=== PATIENT | female | born 1940 | race Caucasian/White ===

== ENCOUNTER → 2016-11-15 | Day surgery (SDC) | payer MEDICARE, BC ==
[~2016-11-15] MED LIST: AMARYL PO; ASPIRIN81 M2 PO; COREG PO; CRESTOR PO; GLUCOPHAGE XR500 MG PO; HYDROCODON-ACE1 EAC5 PO; LISINOPRIL PO; LOVENOX; PRAVACHOL PO; PROTONIX PO; VICODIN 5/500 T1 TAB PO; XARELTO20 MG PO; ZOCOR20 MG PO
--- NOTE | ~2016-11-15 | OR ---
Unit #: [id number] #: [id number] Patient: ISAAC ALBERT [id number] [address] [address] [id number] O MR#: [id number] NAME: ISAAC ALBERT ROOM: Date of Procedure: 11/15/2016 Admission Date: 11/15/2016 Surgeon: Ezio Newton M.D. : 1940 Attending Physician: Ezio Newton M.D. Primary Care Physician: Ezio Newton M.D. OPERATIVE REPORT PREOPERATIVE DIAGNOSIS Arthrofibrosis of right total knee. POSTOPERATIVE DIAGNOSIS Arthrofibrosis of right total knee. PROCEDURE PERFORMED Manipulation of right total knee. ANESTHESIA General. DESCRIPTION OF PROCEDURE The patient was brought to the operating room, given a general anesthetic. Her motion of the knee was -15 in extension with flexion to about 70 to 75 degrees. After her general anesthetic was administered, we then manipulated the knee gaining full extension and flexion to about 105 to 110 degrees of flexion. Her knee was taken through a range of motion multiple times. General anesthetic was reversed. She was transferred to the recovery room. We will start physical therapy later today. Dictated by... Esteban Ortez/toney TD: 11/15/2016 21:09 JOB #: [id number] OPERATIVE REPORT X Ezio Newton MD X PROCEDURE OPERATIVE NOTE
[2016-11-15 08:38] LABS: URINE SOURCE CLEAN CATCH
[2016-11-15 08:45] LABS: HEMATOCRIT 37.6 % (35.0-45.0); HEMOGLOBIN 12.2 gm/dL (12.0-16.0); MEAN CELL VOLUME 80.8 FL (83-96); MEAN CORPUSCULAR HEMOGLOBIN 26.3 PG (28-34); MEAN CORPUSCULAR HGB CONC 32.6 g/dL (30-36); MEAN PLATELET VOLUME 7.8 FL (6.5-11.5); RED BLOOD COUNT 4.65 X10e (3.90-5.30); RED CELL DISTRIBUTION WIDTH 14.8 % (11.0-15.5); WHITE BLOOD COUNT 6.3 X10e3 (4.0-10.5)
[2016-11-15 08:53] LABS: URINE APPEARANCE CLOUDY; URINE BILIRUBIN NEG (NEG); URINE BLOOD NEG (NEG); URINE COLOR YELLOW; URINE GLUCOSE NEG (NEG); URINE KETONE NEG (NEG); URINE LEUKOCYTE ESTERASE NEG (NEG); URINE NITRATE NEG (NEG); URINE PROTEIN NEG (NEG); URINE UROBILINOGEN 0.2 MG/DL (NEG)
[2016-11-15 09:08] LABS: BLOOD UREA NITROGEN 10 mg/dL (9-23); BUN/CREATININE RATIO 14.28; CARBON DIOXIDE 26 mmol/L (22-31); CHLORIDE 105 mmol/L (100-111); CREATININE SERUM 0.7 mg/dL (0.6-1.4); GLOM FILT RATE Estimated ABOVE60 mL/min (>60); GLUCOSE FASTING 199 mg/dL (70-110); POTASSIUM 4.3 mmol/L (3.5-5.1); SODIUM 138 mmol/L (135-145)
[2016-11-15 09:10] LABS: CULTURE INDICATED? NO
== END | disposition home or self-care (01) ==
LOC: CSUR 07:58
PROVIDERS: Orthopaedic Surgery
DX: M24.661 Ankylosis, right knee (principal); I10 Essential (primary) hypertension; E11.9 Type 2 diabetes mellitus without complications; K21.9 Gastro-esophageal reflux disease without esophagitis; Z88.2 Allergy status to sulfonamides; Z79.899 Other long term (current) drug therapy; Z90.49 Acquired absence of other specified parts of digestive tract; Z90.710 Acquired absence of both cervix and uterus; Z90.722 Acquired absence of ovaries, bilateral; Z98.41 Cataract extraction status, right eye; Z98.42 Cataract extraction status, left eye; Z98.890 Other specified postprocedural states
CPT/HCPCS: 80048; 81003; 82947; 85027; J3010

== ENCOUNTER → 2017-02-23 | Outpatient (CLI) | payer MEDICARE, BC ==
--- NOTE | ~2017-02-23 | CR63 ---
[facility] A Service of [facility] & [facility] RADIOLOGY TEXT RESULTS PATIENT: ISAAC ALBERT LOCATION: [facility] : [birth year] UNIT #: [id number] AGE: [address]: Ezio Newton MD SEX: F ORDER DR: [id number] [facility] [address] [place], [place] [address] [id number] O MR#: [id number] Acc #: [id number] NAME: ISAAC ALBERT : 1940 SEX: F STUDY DATE/TIME: 02/23/2017 9:38 UNIT: [facility] ROOM: STUDY DESCRIPTION: CR Chest 2 View Attending Physician: Ezio Newton M.D. Referring Physician: Ezio Newton M.D. Ordering Physician: Ezio Newton M.D. Primary Care Physician: Kavon Parker M.D. MEDICAL IMAGING REPORT This report is preliminary unless electronic signature is present EXAM Chest 02/23/2017 HISTORY 76-year-old woman preop right knee arthroplasty. COMPARISON 09/15/2016. FINDINGS PA and lateral chest views show normal cardiac size and configuration. Hilar structures and mediastinal contours are preserved. Bilateral lungs are expanded and clear. IMPRESSION Negative chest Dictated by... Panchito Quijano M.D. THIS IS AN ELECTRONICALLY VERIFIED REPORT Panchito Quijano M.D. at 02/23/2017 3:35 PM KWESI/vee TD: 02/23/2017 13:40 JOB #: [id number] MEDICAL IMAGING REPORT Page 1 of 1 COPY
--- NOTE | ~2017-02-23 | EKG ---
PATIENT: ISAAC ALBERT UNIT #: [id number] Ventricular Rate: 88 BPM Atrial Rate: 88 BPM P-R Interval: 158 ms QRS Duration: 82 ms Q-T Interval: 342 ms QTC Calculation(Bezet): 413 ms P [place]: 74 degrees Calculated R [place]: 41 degrees Calculated T [place]: 81 degrees Diagnosis Line: Normal sinus rhythm Diagnosis Line: Normal ECG Diagnosis Line: When compared with ECG of 19-MAR-2015 12:20, Diagnosis Line: T wave amplitude has decreased in Lateral leads Diagnosis Line: Confirmed by ANTHONY DICKEY MD ([id number]) on 02/24/2017 Diagnosis Line: 6:33:58 PM INTERPRETING MD: NOBLE ORR
[2017-02-23 09:36] LABS: URINE APPEARANCE CLEAR; URINE BILIRUBIN NEG (NEG); URINE BLOOD NEG (NEG); URINE COLOR YELLOW; URINE GLUCOSE NEG (NEG); URINE KETONE NEG (NEG); URINE LEUKOCYTE ESTERASE NEG (NEG); URINE NITRATE NEG (NEG); URINE PROTEIN NEG (NEG); URINE SPECIFIC GRAVITY 1.015 (1.003-1.035); URINE UROBILINOGEN 0.2 MG/DL (NEG)
[2017-02-23 09:37] LABS: HEMATOCRIT 39.5 % (35.0-45.0); HEMOGLOBIN 12.6 gm/dL (12.0-16.0); MEAN CELL VOLUME 81.9 FL (83-96); MEAN CORPUSCULAR HEMOGLOBIN 26.2 PG (28-34); MEAN PLATELET VOLUME 8.4 FL (6.5-11.5); RED BLOOD COUNT 4.82 X10e (3.90-5.30); RED CELL DISTRIBUTION WIDTH 14.9 % (11.0-15.5); WHITE BLOOD COUNT 6.4 X10e3 (4.0-10.5)
[2017-02-23 09:49] LABS: URINE SOURCE CLEAN CATCH
[2017-02-23 09:50] LABS: CULTURE INDICATED? NO
[2017-02-23 10:41] LABS: BUN/CREATININE RATIO 17.5; CALCIUM SERUM 9.3 mg/dL (8.4-10.2); CREATININE SERUM 0.8 mg/dL (0.6-1.4); GLOM FILT RATE Estimated 72.7 mL/min (>60); POTASSIUM 4.5 mmol/L (3.5-5.1)
== END | disposition home or self-care (01) ==
LOC: CLAB 08:55
PROVIDERS: Orthopaedic Surgery
DX: Z01.818 Encounter for other preprocedural examination (principal); M24.661 Ankylosis, right knee; E11.9 Type 2 diabetes mellitus without complications; I10 Essential (primary) hypertension; E78.5 Hyperlipidemia, unspecified
CPT/HCPCS: 36415; 71020; 80048; 81003; 85027; 93005